=== PATIENT | female | born 1970 | race Caucasian/White ===

== ENCOUNTER 2017-02-15 20:40 | Emergency (ER) | payer BC ==
[2017-02-15 20:56] VITALS: BP 110/63; PULSE 80; TEMP 98.3; BMI 28.3
--- NOTE | 2017-02-15 23:40 | PDOC ---
History of Present Illness - General History Source: Patient Exam Limitations: No Limitations - History of Present Illness Initial Comments: 02/15/17 23:55 The patient is a 47 year old female, with no significant past medical history who presents to the emergency department with R sided chest pain for the past 4 days. Patient reports pain is localized to R chest, radiates to R shoulder. Patient reports associated dyspnea on exertion. Patient notes recent travel from [facility] and also has been experiencing calf pain. Patient also reports recent stressors in her life including family deaths and employment issues. She denies headache or dizziness. She denies fever, chills, abdominal pain, nausea, vomit, diarrhea or constipation. She denies dysuria, frequency, urgency or hematuria. Patient denies sick contacts. Allergies: NKA Past surgical history: Social history: None PCP: None <Arlene Zhong - Last Filed: 02/15/17 23:55> - General History Source: Patient <JosesitoestelaCandiceLior - Last Filed: 02/16/17 02:04> - General Chief Complaint: Pain Stated Complaint: CHEST PAIN Time Seen by Provider: 02/15/17 23:35 Past History <Arlene Zhong - Last Filed: 02/15/17 23:55> - Past Medical History Other medical history: Pt denies - Suicide/Smoking/Psychosocial Hx Smoking History: Never smoked Have you smoked in the past 12 months: No Information on smoking cessation initiated: No Hx Alcohol Use: No Drug/Substance Use Hx: No Substance Use Type: None <JosesitoestelaCandiceLior - Last Filed: 02/16/17 02:04> - Past Medical History Allergies/Adverse Reactions: Allergies Allergy/AdvReac Type Severity Reaction Status Date / Time No Known Allergies Allergy Verified 02/15/17 20:50 Home Medications: Ambulatory Orders NK [No Known Home Medication] 02/16/17 Review of Systems - Review of Systems Able to Perform ROS?: Yes Comments:: 02/15/17 23:55 CONSTITUTIONAL: Absent: fever, chills, diaphoresis, generalized weakness, malaise, loss of appetite HEENT: Absent: rhinorrhea, nasal congestion, throat pain, throat swelling, difficulty swallowing, mouth swelling, ear pain, eye pain, visual Changes CARDIOVASCULAR: +chest pressure. +chest pain Absent: syncope, palpitations, irregular heart rate, lightheadedness, peripheral edema RESPIRATORY: Absent: cough, shortness of breath, dyspnea with exertion, orthopnea, wheezing, stridor, hemoptysis GASTROINTESTINAL: Absent: abdominal pain, abdominal distension, nausea, vomiting, diarrhea, constipation, melena, hematochezia GENITOURINARY: Absent: dysuria, frequency, urgency, hesitancy, hematuria, flank pain, genital pain MUSCULOSKELETAL: Absent: myalgia, arthralgia, joint swelling SKIN: Absent: rash, itching, pallor HEMATOLOGIC/IMMUNOLOGIC: Absent: easy bleeding, easy bruising, lymphadenopathy, frequent infections ENDOCRINE: Absent: unexplained weight gain, unexplained weight loss, heat intolerance, cold intolerance NEUROLOGIC: Absent: headache, focal weakness or paresthesias, dizziness, unsteady gait, seizure, mental status changes, bladder or bowel incontinence PSYCHIATRIC: Absent: anxiety, depression, suicidal or homicidal ideation, hallucinations. <Arlene Zhong - Last Filed: 02/15/17 23:55> *Physical Exam - Vital Signs Last Vital Signs Temp Pulse Resp BP Pulse Ox 98.3 F 80 18 110/63 98 02/15/17 20:54 02/15/17 20:54 02/15/17 20:54 02/15/17 20:54 02/15/17 20:54 - Physical Exam Comments: 02/15/17 23:55 GENERAL: Well developed, well nourished. Awake and alert. +in moderate distress. HEENT: Normocephalic, atraumatic. PERRLA, EOMI. No conjunctival pallor. Sclerae are non -icteric. Moist mucous membranes. Oropharynx is clear. NECK: Supple. Full ROM. No JVD. Carotid pulses 2+ and symmetric, without bruits. No thyromegaly. No lymphadenopathy. CARDIOVASCULAR: Regular rate and rhythm. No murmurs, rubs, or gallops. Distal pulses are 2+ and symmetric. PULMONARY: No evidence of respiratory distress. Lungs clear to auscultation bilaterally. No wheezing, rales or rhonchi. ABDOMINAL: Soft. Non-tender. Non-distended. No rebound or guarding. No organomegaly. Normoactive bowel sounds. MUSCULOSKELETAL Normal range of motion at all joints. No bony deformities or tenderness. No CVA tenderness. EXTREMITIES: No cyanosis. No clubbing. No edema. No calf tenderness. SKIN: Warm and dry. Normal capillary refill. No rashes. No jaundice. NEUROLOGICAL: Alert, awake, appropriate. Cranial nerves 2-12 intact. No deficits to light touch and temperature in face, upper extremities and lower extremities. No motor deficits in the in face, upper extremities and lower extremities. Normoreflexic in the upper and lower extremities. Normal speech. Toes are downgoing bilaterally. Gait is normal without ataxia. PSYCHIATRIC: Cooperative. Good eye contact. Appropriate mood and affect. <Arlene Zhong - Last Filed: 02/15/17 23:55> - Vital Signs Last Vital Signs Temp Pulse Resp BP Pulse Ox 98.3 F 80 18 110/63 98 02/15/17 20:54 02/15/17 20:54 02/15/17 20:54 02/15/17 20:54 02/15/17 20:54 <Lior Avila - Last Filed: 02/16/17 02:04> ED Treatment Course - LABORATORY CBC & Chemistry Diagram: 02/15/17 00:04 02/15/17 00:04 <Lior Avila - Last Filed: 02/16/17 02:04> Medical Decision Making - Medical Decision Making 02/16/17 02:04 Dr. Avila: The scribe's documentation has been prepared under my direction and personally reviewed by me in its entirery. I confirm that the note above accurately reflects all work, treatment, procedures, and medical decision making performed by me. <Lior Avila - Last Filed: 02/16/17 02:04> *DC/Admit/Observation/Transfer - Attestations Scribe Attestion: 02/15/17 23:56 Documentation prepared by Arlene Zhong, acting as neuropsychology medical consultant for Lior Avila DO. <Arlene Zhong - Last Filed: 02/15/17 23:55> - Discharge Dispostion Admit: No <Lior Avila - Last Filed: 02/16/17 02:04> Diagnosis at time of Disposition: Chest pain Qualifiers: Chest pain type: unspecified Qualified Code(s): R07.9 - Chest pain, unspecified - Discharge Dispostion Disposition: HOME Condition at time of disposition: Stable - Referrals Referrals: Srinivas Malcolm MD [Staff Physician] - - Patient Instructions Printed Discharge Instructions: DI for Chest Pain
[2017-02-15] MEDS ORDERED: ONDANSETRON 4 MG/2 ML VIAL IVPUSH STA (23:42)
[2017-02-15] MEDS ORDERED: morphine CARPU-JECT 2 MG/1 ML DISP.SYRIN IVPUSH ONE (23:42)
[2017-02-16 00:08] LABS: BASOPHIL 0.8 % (0-2.0); EOSINOPHIL 2.2 % (0-4.5); MCH 30.4 pg (25.7-33.7); MCHC 33.5 g/dl (32.0-36.0); MEAN CELL VOLUME 90.7 fl (80-96); MEAN PLT VOLUME 8.1 fl (7.5-11.1); NEUTROPHILS 54.2 % (42.8-82.8); PLATELET COUNT 283 K/MM3 (134-434); RDW 14.7 % (11.6-15.6); WHITE BLOOD COUNT 7.8 K/mm3 (4.0-10.0)
[2017-02-16] MEDS ORDERED: morphine CARPU-JECT 10 MG/1 ML DISP.SYRIN ONE (00:14)
[2017-02-16] MEDS ORDERED: ONDANSETRON 4 MG/2 ML VIAL ONE (00:14)
[2017-02-16 00:23] LABS: INR 1.04 (0.82-1.09); PROTHROMBIN TIME (PATIENT) 11.7 SEC (9.98-11.88)
[2017-02-16 00:37] LABS: ALBUMIN 3.5 g/dl (3.4-5.0); ANION GAP 8 (8-16); BILIRUBIN,TOTAL 0.2 mg/dL (0.2-1.0); CALCIUM 8.6 mg/dL (8.5-10.1); CO2 25 mmol/L (21-32); CREATININE 0.5 mg/dL (0.55-1.02); GLUCOSE,RANDOM 94 mg/dL (74-106); SGOT/AST 24 U/L (15-37); SGPT/ALT 26 U/L (12-78); TOT PROT 6.8 g/dl (6.4-8.2)
[2017-02-16 00:39] LABS: ALK PHOS 77 U/L (45-117); CPK 79 IU/L (26-192); TROPONIN I < 0.02 ng/ml (0.00-0.05)
--- NOTE | 2017-02-16 12:59 | EKG ---
Test Reason : Blood Pressure : / mmHG Vent. Rate : 075 BPM Atrial Rate : 075 BPM P-R Int : 142 ms QRS Dur : 072 ms QT Int : 390 ms P-R-T Axes : 040 010 015 degrees QTc Int : 435 ms NORMAL SINUS RHYTHM WITH SINUS ARRHYTHMIA POSSIBLE LEFT ATRIAL ENLARGEMENT BORDERLINE ECG NO PREVIOUS ECGS AVAILABLE Confirmed by RAFAEL RDZ, MARLENY ([id number]) on 02/16/2017 12:59:26 PM Referred By: Confirmed By:MARLENY HALL MD
== END 2017-02-16 02:15 | disposition home or self-care (01) ==
LOC: JER 20:40
PROC: 3E033NZ Introduction of Analgesics, Hypnotics, Sedatives into Peripheral Vein, Percutaneous Approach (ICD-10-PCS; principal; 2017-02-15)
PROC: 3E033GC Introduction of Other Therapeutic Substance into Peripheral Vein, Percutaneous Approach (ICD-10-PCS; 2017-02-15)
DX: R07.89 Other chest pain (principal)
CPT/HCPCS: 36415; 71275-TC; 80053; 82550; 83735; 84484; 84703; 85025; 85379; 85610; 93005; 93010; 93970-TC; 99282-25

== ENCOUNTER 2018-01-09 20:34 | Emergency (ER) | payer BC ==
[2018-01-09 20:55] VITALS: BMI 28.3
--- NOTE | 2018-01-09 20:55 | PDOC ---
Rapid Medical Evaluation Chief Complaint: Rash Time Seen by Provider: 01/09/18 20:50 Medical Evaluation: Allergies Allergy/AdvReac Type Severity Reaction Status Date / Time No Known Allergies Allergy Verified 02/15/17 20:50 01/09/18 20:50 47 year old with burning rash to midback x 2 days. denies fever/ chills PE: erythema with vesicles left nid back, left arm A: shingles p: patient to the ER for further management of care. Discharge Disposition - Diagnosis Shingles Qualifiers: Herpes zoster complications: without complications Qualified Code(s): B02.9 - Zoster without complications - Referrals - Patient Instructions - Post Discharge Activity
[2018-01-09] MEDS ORDERED: valACYclovir HCL 1000 MG TABLET PO ONE (21:33)
--- NOTE | 2018-01-09 21:33 | PDOC ---
History of Present Illness <Orville Bowen - Last Filed: 01/09/18 22:03> <Tyra Burger - Last Filed: 01/10/18 02:17> - General Chief Complaint: Rash Stated Complaint: RASH ALL OVER THE BODY Time Seen by Provider: 01/09/18 20:50 Past History <Magi Bowenelodia - Last Filed: 01/09/18 22:03> - Suicide/Smoking/Psychosocial Hx Smoking History: Never smoked Have you smoked in the past 12 months: No Information on smoking cessation initiated: No Hx Alcohol Use: No Drug/Substance Use Hx: No Substance Use Type: None <Tyra Burger - Last Filed: 01/10/18 02:17> - Past Medical History Allergies/Adverse Reactions: Allergies Allergy/AdvReac Type Severity Reaction Status Date / Time No Known Allergies Allergy Verified 01/09/18 20:55 Home Medications: Ambulatory Orders Lidocaine 5% Patch [Lidoderm Patch -] 1 patch TP DAILY #7 patch 01/09/18 Valacyclovir HCl [Valtrex] 1,000 mg PO TID #21 tablet 01/09/18 Review of Systems - Review of Systems Able to Perform ROS?: Yes Is the patient limited Mongolian proficient: No Constitutional: No: Symptoms Reported, See HPI, Chills, Diaphoresis, Fever, Loss of Appetite, Malaise, Night Sweats, Weakness, Weight Stable, Unintentional Wgt. Loss, Unexplained wgt Loss, Other HEENTM: No: Symptoms Reported, See HPI, Eye Pain, Blurred Vision, Tearing, Recent change in vision, Double Vision, Cataracts, Ear Pain, Ocular Prothesis, Ear Discharge, Nose Pain, Nose Congestion, Tinnitus, Nose Bleeding, Hearing Loss , Throat Pain, Throat Swelling, Mouth Pain, Dental Problems, Difficulty Swallowing, Mouth Swelling, Other Respiratory: No: Symptoms reported, See HPI, Cough, Orthopnea, Shortness of Breath, SOB with Exertion, SOB at Rest, Stridor, Wheezing, Productive cough, Hemoptysis, Other Cardiac (ROS): No: Symptoms Reported, See HPI, Chest Pain, Edema, Irregular Heart Rate, Lightheadedness, Palpitations, Syncope, Chest Tightness, Other ABD/GI: No: Symptoms Reported, See HPI, Abdominal Distended, Abd. Pain w/ defecation, Blood Streaked Bowels, Constipated, Diarrhea, Difficulty Swallowing , Nausea, Poor Appetite, Poor Fluid Intake, Rectal Bleeding, Vomiting, Indigestion, Abdominal cramping, Tarry Stools, Other : No: Symptoms Reported, See HPI, Burning, Dysuria, Discharge, Frequency, Flank Pain, Hematuria, Incontinence, Pain, Urgency, Testicular Mass, Testicular Swelling, Lesions, Testicular Pain, Other Musculoskeletal: No: Symptoms Reported, See HPI, Back Pain, Gout, Joint Pain, Joint Swelling, Muscle Pain, Muscle Weakness, Neck Pain, Joint Stiffness, Other Integumentary: Yes: Rash (vescicular rash to left upper back) Psychiatric: No: Anxiety, Depression, Frequent Crying, Stressors, Sleep Pattern Change, Emotional Problems, Mood Swings, Change in Appetite, Other <Tyra Burger - Last Filed: 01/10/18 02:17> *Physical Exam - Vital Signs Last Vital Signs Temp Pulse Resp BP Pulse Ox 98.2 F 84 16 116/75 100 01/09/18 20:51 01/09/18 20:51 01/09/18 20:51 01/09/18 20:51 01/09/18 20:51 - Physical Exam Comments: 01/09/18 21:37 GENERAL: Well developed, well nourished. Awake and alert. No acute distress. HEENT: Normocephalic, atraumatic. PERRLA, EOMI. No conjunctival pallor. Sclera are non- icteric. Moist mucous membranes. Oropharynx is clear. NECK: Supple. Full ROM. No JVD. Carotid pulses 2+ and symmetric, without bruits. No thyromegaly. No lymphadenopathy. CARDIOVASCULAR: Regular rate and rhythm. No murmurs, rubs, or gallops. Distal pulses are 2+ and symmetric. PULMONARY: No evidence of respiratory distress. Lungs clear to auscultation bilaterally. No wheezing, rales or rhonchi. ABDOMINAL: Soft. Non-tender. Non-distended. No rebound or guarding. No organomegaly. Normoactive bowel sounds. MUSCULOSKELETAL(+)herpetic vesicle on left side of upper back. Normal range of motion at all joints. No bony deformities or tenderness. No CVA tenderness. EXTREMITIES: No cyanosis. No clubbing. No edema. No calf tenderness. SKIN: Warm and dry. Normal capillary refill. No rashes. No jaundice. NEUROLOGICAL: Alert, awake, appropriate. Cranial nerves 2-12 intact. No deficits to light touch and temperature in face, upper extremities and lower extremities. No motor deficits in the in face, upper extremities and lower extremities. Normoreflexic in the upper and lower extremities. Normal speech. Toes are down- going bilaterally. Gait is normal without ataxia. PSYCHIATRIC: Cooperative. Good eye contact. Appropriate mood and affect. Documentation prepared by Orville Bowen, acting as chief medical director for Tyra Burger MD. 01/09/18 22:03 <Orville Bowen - Last Filed: 01/09/18 22:03> - Vital Signs Last Vital Signs Temp Pulse Resp BP Pulse Ox 98.2 F 84 16 116/75 100 01/09/18 20:51 01/09/18 20:51 01/09/18 20:51 01/09/18 20:51 01/09/18 20:51 <Tyra Burger - Last Filed: 01/10/18 02:17> *DC/Admit/Observation/Transfer <Orville Bowen - Last Filed: 01/09/18 22:03> <Tyra Burger - Last Filed: 01/10/18 02:17> Diagnosis at time of Disposition: Shingles Qualifiers: Herpes zoster complications: without complications Qualified Code(s): B02.9 - Zoster without complications - Discharge Dispostion Disposition: HOME Condition at time of disposition: Good - Prescriptions Prescriptions: Lidocaine 5% Patch [Lidoderm Patch -] 1 patch TP DAILY #7 patch Valacyclovir HCl [Valtrex] 1,000 mg PO TID #21 tablet - Patient Instructions Printed Discharge Instructions: DI for Shingles Additional Instructions: PLEASE avoid people who have not had chicken pox especially females Take your medication as prescribed - Post Discharge Activity Forms/Work/School Notes: Back to Work
[2018-01-09] MEDS ORDERED: valACYclovir HCL 500 MG TABLET (FP) ONE (21:45)
[2018-01-09 23:04] VITALS: BP 118/74; PULSE 78; TEMP 98
== END 2018-01-09 22:30 | disposition home or self-care (01) ==
LOC: JER 20:34
DX: B02.9 Zoster without complications (principal)
CPT/HCPCS: 99283-25

== ENCOUNTER 2018-06-23 15:10 | Emergency (ER) | payer BC ==
[2018-06-23 15:15] VITALS: BP 116/74; PULSE 88; TEMP 98.8; BMI 29.6
[2018-06-23] MEDS ORDERED: ACETAMINOPHEN 500 MG TABLET (FP) PO ONE (15:36)
[2018-06-23] MEDS ORDERED: ACETAMINOPHEN 500 MG TABLET (FP) ONE (15:37)
--- NOTE | 2018-06-23 15:42 | PDOC ---
History of Present Illness - General Chief Complaint: Injury Stated Complaint: RT ANKLE INJURY Time Seen by Provider: 06/23/18 15:18 History Source: Patient Exam Limitations: No Limitations - History of Present Illness Initial Comments: 06/23/18 15:36 HISTORY OF PRESENT ILLNESS: 48-year-old woman presents emergency department for evaluation of right ankle pain status post stepping into a pot hole. Patient reports he stepped into the pothole she had inversion of the foot. Patient fell to the ground immediately has been unable to bear weight since the incident approximately one hour ago. Patient crawled out of the street onto the sidewalk and then activated EMS. No recent travel or sick contacts. PAST MEDICAL HISTORY: Denies past medical history SURGICAL HISTORY: Denies ALLERGIES: No known drug allergies REVIEW OF SYSTEMS General/Constitutional: Denies fever or chills. Denies weakness, weight change. HEENT: Denies change in vision. Denies ear pain or discharge. Denies sore throat. Cardiovascular: Denies chest pain or shortness of breath. Respiratory: Denies cough, wheezing, or hemoptysis. Gastrointestinal: Denies nausea, vomiting, diarrhea or constipation. Denies rectal bleeding. Genitourinary: Denies dysuria, frequency, or change in urination. Musculoskeletal: see HPI Skin and breasts: Denies rash or easy bruising. Neurologic: Denies headache, vertigo, loss of consciousness, or loss of sensation. Psychiatric: Denies depression or anxiety. Endocrine: Denies increased thirst. Denies abnormal weight change. Hematologic/Lymphatic: Denies anemia, easy bleeding, or history of blood clots. Allergic/Immunologic: Denies hives or skin allergy. Denies latex allergy. PHYSICAL EXAM General Appearance: Well-appearing, appropriately dressed. No apparent distress , no intoxication. HEENT: EOMI, PERRLA, normal ENT inspection, normal voice, TMs normal, pharynx normal. No conjunctival pallor. No photophobia, scleral icterus. Neck: Supple. Trachea midline. No tenderness, rigidity, carotid bruit, stridor , lymphadenopathy, or thyromegaly. Respiratory/Chest: Lungs CTAB. No shortness of breath, chest tenderness, respiratory distress, accessory muscle use. No crackles, rales, rhonchi, stridor , wheezing, dullness Cardiovascular: RRR. S1, S2. No JVD, murmur, bradycardia, tachycardia. Vascular Pulses: Dorsalis-Pedis (R): 2+, Dorsalis-Pedis (L): 2+ Musculoskeletal/Extremities: Swelling present over the lateral malleolus of the right ankle. Hematoma present. No tenderness to palpation of the tibia, fibula, navicular, base of the fifth metatarsal. Range of motion decreased secondary to pain. No deformity present. Neurovascular intact. Integumentary: Appropriate color, dry, warm. No cyanosis, erythema, jaundice or rash Neurologic: plate colorer II-XII intact. Fully oriented, alert. Appropriate mood/affect. Motor strength 5/5. No appreciable EOM palsy, facial droop or sensory deficit. Past History - Past Medical History Allergies/Adverse Reactions: Allergies Allergy/AdvReac Type Severity Reaction Status Date / Time No Known Allergies Allergy Verified 06/23/18 15:15 Home Medications: Ambulatory Orders NK [No Known Home Medication] 06/23/18 COPD: No - Suicide/Smoking/Psychosocial Hx Smoking History: Never smoked Have you smoked in the past 12 months: No Hx Alcohol Use: No Drug/Substance Use Hx: No Substance Use Type: None *Physical Exam - Vital Signs Last Vital Signs Temp Pulse Resp BP Pulse Ox 98.8 F 88 18 116/74 98 06/23/18 15:12 06/23/18 15:12 06/23/18 15:12 06/23/18 15:12 06/23/18 15:12 Moderate Sedation - Procedure Monitoring Vital Signs: Procedure Monitoring Vital Signs Temperature 98.8 F 06/23/18 15:12 Pulse Rate 88 06/23/18 15:12 Respiratory Rate 18 06/23/18 15:12 Blood Pressure 116/74 06/23/18 15:12 O2 Sat by Pulse Oximetry (%) 98 06/23/18 15:12 ED Treatment Course - RADIOLOGY Radiology Studies Ordered: Category Date Time Status ANKLE & FOOT-RIGHT* [RAD] Stat Radiology 06/23/18 15:36 Ordered Medical Decision Making - Medical Decision Making 06/23/18 15:36 A/P: 48-year-old woman with right ankle pain status post inversion of the foot No bony tenderness to the bones of the foot, tibia, fibula. Swelling and ecchymosis present over the lateral malleolus. 2+ DP pulses bilaterally Neurovascular intact X-rays Tylenol 1 g orally Reassess 06/23/18 16:05 X-rays as read by me: No acute fractures or dislocations present. Soft tissue swelling noted laterally. Seth wrap Aircast Crutches Discharge home with orthopedic follow-up. *DC/Admit/Observation/Transfer Diagnosis at time of Disposition: Left ankle sprain Qualifiers: Encounter type: initial encounter Involved ligament of ankle: unspecified ligament Qualified Code(s): S93.402A - Sprain of unspecified ligament of left ankle, initial encounter - Discharge Dispostion Disposition: HOME Condition at time of disposition: Stable Decision to Admit order: No - Referrals Referrals: Roly Patrick [Primary Care Provider] - Arturo Vega MD [Staff Physician] - - Patient Instructions Additional Instructions: Take Tylenol or Motrin as needed for pain. Follow manufacturers instructions for appropriate dosage. Try not to walk or bear weight on your right ankle as much as possible for the next 3 days. Apply ice for 20 minutes and removed for at least 20 minutes before reapplying the ice. Keep Seth wrap on your ankle as much as possible to help decrease some of the swelling control pain. Whenever possible keep your foot elevated to decrease swelling to your ankle. You've been given the number for an orthopedist. If symptoms do not resolve within the next 7 days call the orthopedist for further evaluation. Return to emergency department for discoloration of the foot, numbness or tingling to the foot, worsening pain, or any other concerns. Thank you very much for choosing us to provide your emergent healthcare needs. - Post Discharge Activity
== END 2018-06-23 16:10 | disposition home or self-care (01) ==
LOC: JERFT 15:10
PROC: 2W3QX1Z Immobilization of Right Lower Leg using Splint (ICD-10-PCS; principal; 2018-06-23)
DX: S93.401A Sprain of unspecified ligament of right ankle, initial encounter (principal); W17.89XA Other fall from one level to another, initial encounter; Y93.01 Activity, walking, marching and hiking; Y92.414 Local residential or business street as the place of occurrence of the external cause; Y99.8 Other external cause status
CPT/HCPCS: 73610-TC-RT-FY; 73630-TC-RT-FY; 99282-25

== ENCOUNTER 2019-04-11 20:16 | Emergency (ER) | payer BC ==
[2019-04-11 20:31] VITALS: BP 99/61; PULSE 66; TEMP 98.5; BMI 28.3
--- NOTE | 2019-04-11 23:03 | PDOC ---
History of Present Illness - General Chief Complaint: Injury Stated Complaint: FALL/LUQ/PAIN Time Seen by Provider: 04/11/19 21:06 History Source: Patient Exam Limitations: No Limitations - History of Present Illness Initial Comments: 04/11/19 23:00 49-year-old female denies past medical history presents complaining of pain to left-sided anterior chest wall status post slip and fall in the bathroom yesterday. States she was barefoot, slipped on water, struck her head on the bathtub, no LOC, no headache, no neck pain. Denies chest pain, shortness of breath, back pain or any other symptoms. ROS: GENERAL/CONSTITUTIONAL: No fever, chills, weakness, dizziness HEAD, EYES, EARS, NOSE AND THROAT: No changes in vision, No ear pain or discharge, No sore throat CARDIOVASCULAR: Chest wall pain RESPIRATORY: No shortness of breath or cough GASTROINTESTINAL: No pain, nausea, vomiting, diarrhea or constipation GENITOURINARY: No dysuria MUSCULOSKELETAL: No neck or back pain SKIN: No rash NEUROLOGIC: No headache, vertigo, loss of consciousness, or loss of sensation PE: GENERAL: well-appearing, NAD HEAD: NCAT EYES: Pupils equal, round and reactive to light, sclera anicteric, conjunctiva clear ENT: pharynx: no erythema, no exudate, uvula midline NECK: supple CHEST: T12 Left anterior 10 x 12 cm tender, swollen area, no crepitus noted RESP: clear, no w/r/r CARDIO: rrr, no m/g/r ABD: +BS, soft, nontender, non distended BACK: no midline spinal ttp, no CVAT EXTREMITIES: Normal range of motion, no edema NEUROLOGICAL: Normal speech, normal gait SKIN: Warm, Dry Past History - Past Medical History Allergies/Adverse Reactions: Allergies Allergy/AdvReac Type Severity Reaction Status Date / Time No Known Allergies Allergy Verified 04/11/19 20:29 Home Medications: Ambulatory Orders NK [No Known Home Medication] 06/23/18 COPD: No - Psycho Social/Smoking Cessation Hx Smoking History: Never smoked Have you smoked in the past 12 months: No Hx Alcohol Use: No Drug/Substance Use Hx: No Substance Use Type: None *Physical Exam - Vital Signs Last Vital Signs Temp Pulse Resp BP Pulse Ox 98.5 F 66 18 99/61 100 04/11/19 20:29 04/11/19 20:29 04/11/19 20:29 04/11/19 20:29 04/11/19 20:29 ED Treatment Course - RADIOLOGY Radiology Studies Ordered: Category Date Time Status CHEST PA & LAT [RAD] Stat Radiology 04/11/19 21:15 Completed RIBS-LEFT SIDE [RAD] Stat Radiology 04/11/19 21:16 Completed Medical Decision Making - Medical Decision Making 04/11/19 23:03 49-year-old female status post mechanical slip and fall in her bathroom yesterday. Presents complaining of pain to left anterior chest, left upper quadrant. Large hematoma noted to left upper quadrant/left anterior chest wall cxr: No pneumothorax Will send labs Order chest and abdomen CT Signed out to Dr. Hernandez Discharge - Discharge Information Problems reviewed: Yes Clinical Impression/Diagnosis: Anterior chest wall pain, Abdominal pain Condition: Stable - Follow up/Referral Referrals: Roly Patrick [Primary Care Provider] - - Patient Discharge Instructions - Post Discharge Activity
[2019-04-11] MEDS ORDERED: ACETAMINOPHEN 500 MG TABLET (FP) PO ONE (23:19)
[2019-04-11 23:31] LABS: BASO % 0.9 % (0-2.0); EOS % 2.5 % (0-4.5); HEMATOCRIT 32.1 % (32.4-45.2); HEMOGLOBIN 10.4 GM/dL (10.7-15.3); LYMPH % 37.4 % (8-40); MCH 27.6 pg (25.7-33.7); MCHC 32.6 g/dl (32.0-36.0); MEAN CELL VOLUME 84.7 fl (80-96); MEAN PLT VOLUME 7.6 fl (7.5-11.1); MONO % 11.6 % (3.8-10.2); NEUT % 47.6 % (42.8-82.8); PLATELET COUNT 329 K/MM3 (134-434); RBC 3.79 M/mm3 (3.60-5.2); RDW 15.7 % (11.6-15.6); WHITE BLOOD COUNT 5.8 K/mm3 (4.0-10.0)
[2019-04-11] MEDS ORDERED: ACETAMINOPHEN 325 MG TABLET (FP) ONE (23:32)
[2019-04-11 23:43] LABS: INR 1.11 (0.83-1.09); PROTHROMBIN TIME (PATIENT) 13.1 SEC (9.7-13.0)
[2019-04-11 23:45] LABS: ACTIVATED PTT 32.8 SECONDS (25.2-36.5)
[2019-04-11 23:59] LABS: ALBUMIN 3.5 g/dl (3.4-5.0); BILIRUBIN,TOTAL 0.5 mg/dL (0.2-1); BLOOD UREA NITROGEN 12.4 mg/dL (7-18); CALCIUM 8.6 mg/dL (8.5-10.1); CREATININE 0.6 mg/dL (0.55-1.3); POTASSIUM 3.6 mmol/L (3.5-5.1); TOT PROT 6.8 g/dl (6.4-8.2)
--- NOTE | 2019-04-12 00:03 | PDOC ---
*Physical Exam - Vital Signs Last Vital Signs Temp Pulse Resp BP Pulse Ox 98.5 F 66 18 99/61 100 04/11/19 20:29 04/11/19 20:29 04/11/19 20:29 04/11/19 20:29 04/11/19 20:29 ED Treatment Course - LABORATORY CBC & Chemistry Diagram: 04/11/19 23:25 04/11/19 23:25 - ADDITIONAL ORDERS Additional order review: Laboratory Results 04/11/19 04/11/19 23:25 23:25 PT with INR 13.10 H INR 1.11 H PTT (Actin FS) 32.8 Sodium 141 Potassium 3.6 Chloride 108 H Carbon Dioxide 29 Anion Gap 4 L BUN 12.4 Creatinine 0.6 Est GFR (CKD-EPI)AfAm 124.92 Est GFR (CKD-EPI)NonAf 107.78 Random Glucose 98 Calcium 8.6 Total Bilirubin 0.5 AST 19 ALT 23 Alkaline Phosphatase 60 Total Protein 6.8 Albumin 3.5 04/11/19 23:25 RBC 3.79 MCV 84.7 MCHC 32.6 RDW 15.7 H MPV 7.6 Neutrophils % 47.6 Lymphocytes % 37.4 D Monocytes % 11.6 H Eosinophils % 2.5 Basophils % 0.9 - Medications Given in the ED: ED Medications Discontinued Medications Generic Name Dose Route Start Last Admin Trade Name Kermit PRN Reason Stop Dose Admin Acetaminophen 1,000 mg 04/11/19 23:19 04/11/19 23:37 Tylenol - PO 04/11/19 23:20 1,000 mg ONCE ONE Administration Medical Decision Making - Medical Decision Making 04/12/19 00:01 Patient received as up triage from [facility]. Only H gastritis Here after mechanical slip and fall on a wet bathroom floor, states she hit her head and flank on the way down. No loc, amnesia, confusion, n/v, immediately ambulatory. Pain worsening over the last day. Well appearing, NAD, grimaces on palpation of Left Lower rib cage +Swelling at lateral, Left 11th, 12th ribs, no -ecchymosis POCUS FAST exam negative x1 Analgesia F/u CT imaging dispo per clinical course CT imaging negative for acute traumatic injury Patient endorses improvement of pain after analgesia Return instructions given DC home 04/12/19 00:05 04/12/19 01:46 Discharge - Discharge Information Problems reviewed: Yes Clinical Impression/Diagnosis: Anterior chest wall pain, Abdominal pain Condition: Improved Disposition: HOME - Admission No - Follow up/Referral Referrals: Roly Patrick [Primary Care Provider] - - Patient Discharge Instructions Patient Printed Discharge Instructions: DI for Musculoskeletal Pain Additional Instructions: You were seen here today for evaluation of pain after you fell. All the studies and evaluations did not show any signs of worrisome injury. If the pain persists or worsens, please be re-evaluated urgently. For pain please feel free to take motrin as needed. - Post Discharge Activity
== END 2019-04-12 02:02 | disposition home or self-care (01) ==
LOC: JER 20:16 → JERFT 20:16 → JER 04-12 02:02
DX: R07.89 Other chest pain (principal); R10.9 Unspecified abdominal pain; W18.2XXA Fall in (into) shower or empty bathtub, initial encounter; Y93.89 Activity, other specified; Y92.002 Bathroom of unspecified non-institutional (private) residence as the place of occurrence of the external cause
CPT/HCPCS: 36415; 71046-TC-FY; 71101-TC-LT-FY; 71260-TC; 74177-TC; 80053; 85025; 85610; 85730; 86850; 86900; 86901; 99282-25; Q9967

== ENCOUNTER 2021-12-15 20:03 | Emergency (ER) | payer BC ==
[2021-12-15 20:23] VITALS: TEMP 98.6; BMI 26.6
[2021-12-15] MEDS ORDERED: METOCLOPRAMIDE HCL INJECTION 10 MG/2 ML VIAL IVPB ONE (21:16)
[2021-12-15] MEDS ORDERED: SODIUM CHLORIDE 0.9% 500 ML INFUS.BAG IV ONE (21:34)
[2021-12-15] MEDS ORDERED: METOCLOPRAMIDE HCL INJECTION 10 MG/2 ML VIAL ONE (21:37)
[2021-12-15 22:02] LABS: EOS % 2.9 % (0-4.5); HEMATOCRIT 36.5 % (32.4-45.2); HEMOGLOBIN 12.1 GM/dL (10.7-15.3); LYMPH % 36.5 % (8-40); MCH 27.9 pg (25.7-33.7); MCHC 33.2 g/dl (32.0-36.0); MEAN CELL VOLUME 83.8 fl (80-96); MEAN PLT VOLUME 8.3 fl (7.5-11.1); MONO % 10.1 % (3.8-10.2); NEUT % 49.5 % (42.8-82.8); PLATELET COUNT 320 10^3/uL (134-434); RBC 4.35 M/mm3 (3.60-5.2); WHITE BLOOD COUNT 5.4 K/mm3 (4.0-10.0)
[2021-12-15 22:22] LABS: CHLORIDE 108 mmol/L (98-107); SODIUM 140 mmol/L (136-145)
[2021-12-15 22:24] LABS: ALBUMIN 3.6 g/dl (3.4-5.0); ANION GAP 8 MMOL/L (8-16); BLOOD UREA NITROGEN 10.6 mg/dL (7-18); CALCIUM 8.9 mg/dL (8.5-10.1); CO2 25 mmol/L (21-32); GLUCOSE,RANDOM 122 mg/dL (74-106); MAGNESIUM 2.1 mg/dL (1.8-2.4)
[2021-12-15 22:27] LABS: CREATININE 0.7 mg/dL (0.55-1.3); SGOT/AST 26 U/L (15-37); SGPT/ALT 33 U/L (13-61)
[2021-12-15 22:29] LABS: BILIRUBIN,TOTAL 0.4 mg/dL (0.2-1); TOT PROT 7.4 g/dl (6.4-8.2)
[2021-12-15 22:30] LABS: ALK PHOS 105 U/L (45-117)
[2021-12-15 23:34] VITALS: BP 99/66; PULSE 80; RESP 16
== END 2021-12-15 23:15 | disposition home or self-care (01) ==
LOC: JER 20:03
PROC: 3E033GC Introduction of Other Therapeutic Substance into Peripheral Vein, Percutaneous Approach (ICD-10-PCS; principal; 2021-12-15)
DX: R07.9 Chest pain, unspecified (principal)
CPT/HCPCS: 36415; 71045-TC-FY; 80053; 83735; 84484; 85025; 93005; 93010; 99285-25

== ENCOUNTER 2022-06-03 08:10 | Emergency (ER) | payer BC ==
[2022-06-03 08:24] VITALS: RESP 18
[2022-06-03] MEDS ORDERED: LIDOCAINE 5% TOPICAL PATCH TP ONE (09:21)
[2022-06-03 09:50] LABS: BASO % 1.1 % (0-2.0); EOS % 4.9 % (0-4.5); HEMOGLOBIN 11.9 GM/dL (10.7-15.3); LYMPH % 28.2 % (8-40); MCH 32.1 pg (25.7-33.7); MEAN CELL VOLUME 94.3 fl (80-96); MONO % 10.8 % (3.8-10.2); PLATELET COUNT 368 10^3/uL (134-434); RBC 3.71 M/mm3 (3.60-5.2); WHITE BLOOD COUNT 4.2 K/mm3 (4.0-10.0)
[2022-06-03 09:51] LABS: INR 1.13 (0.83-1.09); PROTHROMBIN TIME (PATIENT) 13.1 SEC (9.7-13.0)
[2022-06-03 09:54] LABS: ACTIVATED PTT 32.3 SECONDS (25.2-36.5)
[2022-06-03 10:01] LABS: CHLORIDE 109 mmol/L (98-107); SODIUM 141 mmol/L (136-145)
[2022-06-03] MEDS ORDERED: LIDOCAINE 5% TOPICAL PATCH ONE (10:01)
[2022-06-03 10:04] LABS: CALCIUM 8.8 mg/dL (8.5-10.1)
[2022-06-03 10:05] LABS: ALBUMIN 3.6 g/dl (3.4-5.0); ANION GAP 7 MMOL/L (8-16); BLOOD UREA NITROGEN 11.3 mg/dL (7-18); CO2 25 mmol/L (21-32); GLUCOSE,RANDOM 94 mg/dL (74-106); LIPASE 96 U/L (73-393); MAGNESIUM 2.1 mg/dL (1.8-2.4)
[2022-06-03 10:07] LABS: CREATININE 0.6 mg/dL (0.55-1.3); SGPT/ALT 42 U/L (13-61)
[2022-06-03 10:08] LABS: SGOT/AST 26 U/L (15-37)
[2022-06-03 10:09] LABS: TOT PROT 6.9 g/dl (6.4-8.2)
[2022-06-03 10:13] LABS: ALK PHOS 107 U/L (45-117)
[2022-06-03 10:28] LABS: BILIRUBIN,TOTAL 0.7 mg/dL (0.2-1)
[2022-06-03] MEDS ORDERED: KETOROLAC TROMETHAMINE 15 MG/ML VIAL IVPUSH ONE (10:45)
[2022-06-03] MEDS ORDERED: KETOROLAC TROMETHAMINE 15 MG/ML VIAL ONE (10:54)
[2022-06-03 12:43] VITALS: BP 101/64; PULSE 66; TEMP 99.4
[2022-06-03] MEDS ORDERED: LIDOCAINE PATCH REMOVAL MC SCH (22:00)
== END 2022-06-03 13:02 | disposition home or self-care (01) ==
LOC: JER 08:10
PROC: 3E0333Z Introduction of Anti-inflammatory into Peripheral Vein, Percutaneous Approach (ICD-10-PCS; principal; 2022-06-03)
DX: R07.89 Other chest pain (principal)
CPT/HCPCS: 36415; 71045-TC-FY; 80053; 83690; 83735; 84484; 85025; 85610; 85730; 86850; 86900; 86901; 93005; 93010; 99285-25